=== PATIENT | female | born 1985 | race Caucasian/White ===

== ENCOUNTER → 2019-01-25 | Outpatient (CLI) | payer BC, OTHER ==
[~2019-01-25] MED LIST: CITA20 PO; CYCL10 PO; Dazidox10 MG PO; ESCI10 PO; ETAN50I SC; HYDACE10B PO; HYDACE5 PO; HYDACE5325; IBUP800 PO; KETO10 PO; META400 PO; Mobic15 MG PO; NAPR500 PO; NAPR550 PO; OXYACE5T PO; OXYACE7.5T PO; PHENY100ER PO; RXCYCL10 PO; RXHYDACE PO; RXNAPNA550 PO; TRAM50 PO; Verotin-Gr Cap1 EACH PO
[2019-01-28 10:18] LABS: Adenovirus F 40/41 Not Detected (NOT DETECT); Astrovirus Not Detected (NOT DETECT); Campylobacter Sp Not Detected (NOT DETECT); Cryptosporidium Not Detected (NOT DETECT); Cyclospora Cayetanensis Not Detected (NOT DETECT); E. Coli O157 Not Detected (NOT DETECT); Entamoeba Histolytica Not Detected (NOT DETECT); Enteroaggregative E. coli-EAEC Not Detected (NOT DETECT); Enteropathogenic E. coli-EPEC Not Detected (NOT DETECT); Enterotoxigenic E. coli-ETEC Not Detected (NOT DETECT); Giardia Lamblia Not Detected (NOT DETECT); Norovirus GI/GII Not Detected (NOT DETECT); Plesiomonas Shigelloides Not Detected (NOT DETECT); Rotavirus A Not Detected (NOT DETECT); Salmonella Sp Not Detected (NOT DETECT); Sapovirus Not Detected (NOT DETECT); Shiga Toxin-prod E. coli-STEC Not Detected (NOT DETECT); Shigella/Enteroin E. coli-EIEC Not Detected (NOT DETECT); Vibrio Cholerae Not Detected (NOT DETECT); Vibrio Sp Not Detected (NOT DETECT); Yersinia Enterocolitica Not Detected (NOT DETECT)
== END ==
LOC: LAB 08:36 → LAB SHORT 08:36
PROVIDERS: Nurse Practitioner Family
DX: R19.7 Diarrhea, unspecified (principal)
CPT/HCPCS: 0097U